=== PATIENT | female | born 1995 | race Caucasian/White ===

== ENCOUNTER 2020-09-06 12:50 | Outpatient (CLI) | payer OTHER, SELFPAY ==
[2020-09-06 13:10] VITALS: BP 123/80; PULSE 77
[2020-09-06 13:16] VITALS: BP 123/80; PULSE 79
[2020-09-06 13:30] VITALS: BP 130/83; PULSE 87
--- NOTE | 2020-09-06 13:37 | PC.NURSE ---
No need to send labs per BP Alee's WNL.
--- NOTE | 2020-09-06 13:37 | PC.NURSE ---
Dr Coleman notified of c/o of elevated BP, headache and some vaginal spotting. Informed of BP's today and sve from yesterday. Ok to dc home with labor precautions.
== END 2020-09-06 13:45 | disposition home or self-care (01) ==
LOC: ANHOBOP 12:53 → ANHOBPP 12:54
PROVIDERS: PCP Family Medicine; Visit Provider Obstetrics & Gynecology
DX: O13.9 Gestational [pregnancy-induced] hypertension without significant proteinuria, unspecified trimester (principal); Z3A.00 Weeks of gestation of pregnancy not specified
CPT/HCPCS: 59025; 99199

== ENCOUNTER 2020-09-10 20:34 | Observation (INO) | payer OTHER, SELFPAY ==
[2020-09-10 22:00] VITALS: BMI 42.0
--- NOTE | 2020-09-11 06:55 | OBADM ---
This patient, Aviva Luke, admitted to the OB room Labor/Delivery/Recovery 105 for observation. Patient/family oriented to hospital policies and general routines including ID bracelet, bed and alarms, visiting hours, pain management, procedures, bathroom and other care routines, personal items, smoking policy, room service/diet, and visiting hours. Patient/Family are encouraged to report perceived risks to care and to ask questions if they do not understand what they are told or what they should do.
--- NOTE | 2020-10-08 10:54 | PM.OBTRLD ---
OB - Triage/Final Diagnosis Visit Information Comments/Additional reasons for admission: I have assessed the risk for this patient, Aviva Luke, and determined that she would benefit from observation care. Final Diagnosis (1) False labor: Code(s): O47.9 - False labor, unspecified Status: Acute
== END 2020-09-11 07:35 | disposition home or self-care (01) ==
PROVIDERS: Admitting Provider Obstetrics & Gynecology; PCP Family Medicine; Visit Provider Obstetrics & Gynecology
DX: O47.03 False labor before 37 completed weeks of gestation, third trimester (principal); Z3A.38 38 weeks gestation of pregnancy
CPT/HCPCS: G0378; G0379

== ENCOUNTER 2020-09-15 05:55 | Inpatient (IN) | payer OTHER, SELFPAY ==
[2020-09-15] VITALS (70 sets, daily range): BP systolic 74–150; BP diastolic 43–108; PULSE 55–137; RESP 18; TEMP 36.2–36.6; O2SAT 82–100; BMI 41.6
--- OUTSIDE RECORDS SUMMARY | 2020-09-15 06:03 | XMS_ITS | Encounter Summary ---
:1995 Author Reason for Visit OB visit Assessment and Plan 1. Previous bariatric surgery co mplicating 2. Routine care Discussion Note: None recorded.Patient educational handouts: No information available. Plan of Care Reminders Provider Appointments None ? ? recorded. Lab None ? ? recorded. Referral None ? ? recorded. Procedures None ? ? recorded. Surgeries None ? ? recorded. Imaging None ? ? recorded. Medications Name Start Date ? ? ? sertraline 100 mg tablet ? TAKE 1 TABLET BY MOUTH EVERY DAY sertraline 50 mg tablet ? TAKE 1 TABLET BY MOUTH EVERY DAY Unisom (diphenhydramine) ? valacyclovir 500 mg tablet ? TAKE 1 TABLET BY MOUTH TWICE DAILY Vitamin B6 ? Medications Administered None recorded. Vitals Height Weight BMI Blood Pressure 5 ft 7 in 258 lbs 40.4 kg/m2 114/78 mm[Hg] Results Lab Results None recorded. Allergies Code Code System Name Reaction Severity Onset NKDA ? ? ? Problems Name Status Onset Date Source ?
--- OUTSIDE RECORDS SUMMARY | 2020-09-15 06:03 | XMS_ITS | Encounter Summary ---
:1995 Author Reason for Visit OB visit Assessment and Plan 1. Previous bariatric surgery co mplicating Discussion Note: None recorded.Patient educational handouts: No [...] BMI Blood Pressure 5 ft 7 in 254 lbs 39.8 kg/m2 123/80 mm[Hg] Results Lab Results None recorded. Allergies Code Code System Name Reaction Severity Onset NKDA ? ? ? Problems Name Status Onset Date Source ? Previous Bariatric Surgery Complica
--- OUTSIDE RECORDS SUMMARY | 2020-09-15 06:03 | XMS_ITS | Encounter Summary ---
:1995 Author Reason for Visit None recorded. Assessment and Plan 1. Previous bariatric surgery co mplicating ? US, obstetric, follow-up Discussion Note: None recorded.Patient educational handouts: No information available. Plan of Care Reminders Provider Appointments None ? ? recorded. Lab None ? ? recorded. Referral None ? ? recorded. Procedures None ? ? recorded. Surgeries None ? ? recorded. Imaging US, 07/25/2020 [facility], Follow-up Medications Name Start Date ? ? ? sertraline 100 mg tablet ? TAKE 1 TABLET BY MOUTH EVERY DAY sertraline 50 mg tablet ? TAKE 1 TABLET BY MOUTH EVERY DAY Unisom (diphenhydramine) ? valacyclovir 500 mg tablet ? TAKE 1 TABLET BY MOUTH TWICE DAILY Vitamin B6 ? Medications Administered None recorded. Vitals None recorded. Results Lab Results None recorded. Allergies Code Code System Name Reaction Severity Onset NKDA ? ? ? Problems Name Status Onset Date Source ? Previous Bariatric Surgery Complic
--- OUTSIDE RECORDS SUMMARY | 2020-09-15 06:03 | XMS_ITS | Encounter Summary ---
:1995 Author Reason for Visit OB visit OB [id number] EDC 09/22/2020 LMP November 2019 un sure Assessment and Plan Assessment Note Patient is __31_weeks . Dis cussed plan. 1. Routine care Discussion Note: None recorded.Patient educational [...] BMI Blood Pressure 5 ft 7 in 256 lbs 40.1 kg/m2 116/84 mm[Hg] Results Lab Results None recorded. Allergies Code Code System Name Reaction Severity Onset NKDA ? ? ?
--- OUTSIDE RECORDS SUMMARY | 2020-09-15 06:03 | XMS_ITS | Encounter Summary ---
[...] Surgeries None ? ? recorded. Imaging US, 08/28/2020 [facility], Follow-up Medications Name Start Date ? [...] Onset Date Source ? Previous Bariatric Surgery Compli
--- OUTSIDE RECORDS SUMMARY | 2020-09-15 06:03 | XMS_ITS | Encounter Summary ---
:1995 Author Reason for Visit None recorded. Assessment and Plan 1. screening ? US, obstetric, follow-up Discussion Note: None recorded.Patient educational handouts: No information available. Plan of Care Reminders Provider Appointments None ? ? recorded. Lab None ? ? recorded. Referral None ? ? recorded. Procedures None ? ? recorded. Surgeries None ? ? recorded. Imaging US, 06/26/2020 [facility], Follow-up Medications Name Start Date ? [...] Onset Date Source ? Previous Bariatric Surgery Complicating Active 07/16/20
--- OUTSIDE RECORDS SUMMARY | 2020-09-15 06:03 | XMS_ITS | Encounter Summary ---
:1995 Author Reason for Visit OB visit Assessment and Plan Assessment Note Patient is ___weeks . Discu ssed plan. 1. Routine care Discussion Note: None [...] BMI Blood Pressure 5 ft 7 in 261 lbs 40.9 kg/m2 144/85 mm[Hg] Results Lab Results None recorded. Allergies Code Code System Name Reaction Severity Onset NKDA ? ? ? Problems Name Status Onset Date [facility]
--- OUTSIDE RECORDS SUMMARY | 2020-09-15 06:03 | XMS_ITS | Encounter Summary ---
:1995 Author Reason for Visit OB visit OB [id number] EDC 09/22/2020 LMP November 2019 un sure Assessment and Plan Assessment Note Patient is __38 weeks . Dis cussed plan. Additional precautionary measures were taken to minimize potentia l exposure to the Covid-19 virus during this patient?s visit, including available araya d bench machine operator upon arrive, temperature check and being asked a series of screening qu estions. All staff wore face coverings during this encounter, as well as provided gabriel tional cleaning and sanitizing of all surfaces, including countertops, pens, c hairs, door handles, light switches, etc, prior to and following the patient?s vis it. 1. Routine care Discussion Note: None recorded.Patient [...]
--- OUTSIDE RECORDS SUMMARY | 2020-09-15 06:03 | XMS_ITS | Encounter Summary ---
[...] ft 7 in 254 lbs 39.8 kg/m2 138/80 mm[Hg] Results Lab Results None recorded. Allergies Code Code System Name Reaction Severity Onset NKDA ? ? ? Problems Name Status Onset Date Source ?
--- OUTSIDE RECORDS SUMMARY | 2020-09-15 06:03 | XMS_ITS | Encounter Summary ---
[...] BMI Blood Pressure 5 ft 7 in 262 lbs 41 kg/m2 118/79 mm[Hg] Results Lab Results None recorded. Allergies Code Code System Name Reaction Severity Onset NKDA ? ? ? Problems Name Status Onset Date [facility]
--- OUTSIDE RECORDS SUMMARY | 2020-09-15 06:03 | XMS_ITS ---
:1995 Author Care Team Providers Name Role Phone Rylan Coleman Primary Care Provider Unavailable Allergies Code Code System Name Reaction Severity Status Onset NKDA ? Medications Name Status Start Date Stop Date ? ? Boostrix Tdap 2.5 Lf unit-8 mcg-5 Lf/0.5 mL intramuscular syring e Completed ? 09/12/2020 PHARMACY ADMINISTERED Macrobid 100 mg capsule Completed 07/26/2018 08/19/19 19 take 1 capsule by oral route every 12 hours with food Microgestin FE 20 (28) 1 Completed ? 06/26 mg-20 mcg (21)/75 mg (7) tablet Nortrel 1/35 (21) 1 mg-35 mcg tablet Completed 02/14/2019 07/16/2020 take 1 tablet by oral route every day ondansetron HCl 4 mg tablet Completed 07/22/201801/18 take 1 tablet by oral route every 6 hours ondansetron HCl 8 mg tablet Completed ? 02/2020 TK 1 T PO Q 8 H FOR 2 DAYS Phenergan 12.5 mg rectal suppository Completed 06/17/2018 02/14/2019 insert 2 suppository by rectal route 2 times every day Active ? Not available 28 mg iron-800 mcg Completed ? 01/18 tablet promethazine 12.5 mg tablet Completed 06/28/201801/18 take 1 tablet by oral route 4 times essence ry day before meals and at bedtime as needed for nausea sertraline 100 mg tablet Active ? Not andre ilable TAKE 1 TABLET BY MOUTH EVERY DAY sertraline 50 mg tablet Active ? Not avai lable TAKE 1 TABLET BY MOUTH EVERY DAY
--- NOTE | 2020-09-15 06:44 | WPDANESEPP ---
Anes - Eval Pre Procedure Procedure: labor epidural Date/Time: 09/15/20 06:44 Surgeon: albert Preop Diagnosis: pain during labor Pre Op Diagnosis: Induction of Labor Patient Data Age: 24 Gender: F Height: Weight: Allergies Allergy/AdvReac Type Severity Reaction Status Date / Time No Known Allergies Allergy Verified 08/28/20 13:33 Home Medications Medication Instructions Recorded Confirmed Type prenat.vits,fiona,sic-qikw-jxugr 1 tablet PO DAILY 08/28/20 08/28/20 History sertraline [Zoloft] 50 mg PO DAILY 08/28/20 08/28/20 History sertraline [Zoloft] 100 mg PO DAILY 08/28/20 08/28/20 History Patient hx anesthesia problems: none Family hx anesthesia problems: none PMFSH Past Medical History Medical History (Updated 09/15/20 @ 06:45 by Adilene Selby CRNA) Depression Intrauterine Family History Family History (Updated 08/28/20 @ 13:36 by Chapincito Lujan RN) Father Diabetes mellitus Hypertension Mother Diabetes mellitus Hypertension Atrial fibrillation Social History Social History Substance use: never Spiritual care concerns: No Exam Day of Procedure 09/15/20 06:44
[2020-09-15] MEDS: OXYTOCIN 30 UNITS/NS 500 ML 30 UNITS/500 ML BAG IV CONT (07:05)
[2020-09-15 07:06] LABS: Basophils Percent Auto 0.2 % (0.2-1.2); Eosinophils Percent Auto 0.2 % (0-4.4); Hematocrit 37.2 % (37.0-47.0); Hemoglobin 12.8 g/dL (12.0-15.0); Immature Granulocyte Absolute 0.12 K/mm3 (0.00-0.031); Immature Granulocyte Percent A 1.1 % (0-0.5); Lymphocytes Absolute Auto 2.63 K/mm3 (0.9-3.2); Lymphocytes Percent Auto 23.7 % (18.3-44.2); Mean Corpuscular HGB Conc 34.4 g/dl (32-36); Mean Corpuscular Hemoglobin 30.3 pg (26-34); Mean Corpuscular Volume 88.2 fl (80-100); Mean Platelet Volume 11.5 fl (7.4-10.4); Monocytes Absolute Auto 0.6 K/mm3 (0.1-0.6); Monocytes Percent Auto 5.6 % (2.6-8.5); Neutrophils Absolute Auto 7.7 K/mm3 (1.3-6.7); Neutrophils Percent Auto 69.2 % (45.5-73.1); Platelet Count Result 220 k/mm3 (150-375); Red Blood Count 4.22 M/mm3 (4.2-5.4); Red Cell Distribution Width 12.3 % (11.5-14.5); White Blood Count 11.1 K/mm3 (4.5-10.0)
[2020-09-15] MEDS: LACTATED RINGERS 1,000 ML 125 ML IV CONT ×3 (07:06→12:21)
--- NOTE | 2020-09-15 07:11 | LDADM ---
This patient, Aviva Luke, was admitted to Labor/Delivery/Recovery 104 on 09/15/20 at 05:55. Plans for labor, pain management and were discussed with patient. Patient/family oriented to hospital policies and general routines including ID bracelet, bed and alarms, visiting hours, pain management, procedures, bathroom and other care routines, personal items, smoking policy, room service/diet and guest tray routines, security routines, and visiting hours. Patient/Family are encouraged to report perceived risks to care and to ask questions if they do not understand what they are told or what they should do. See OBIX for further documentation.
--- NOTE | 2020-09-15 09:27 | WPDHPUPDATE1 ---
History and Physical Update Update Date/Time: 09/15/20 09:27 Multip at 39 weeks - AROM clear /-3, reassuring FHT's History and Physical has been reviewed, including an updated exam of the patient. There are NO changes in the patient's condition. Risks, benefits, and alternatives have been discussed and questions answered. Patient agrees to proceed with procedure.
[2020-09-15] MEDS: ONDANSETRON INJ 4 MG/2 ML VIAL IV PUSH (10:50)
--- NOTE | 2020-09-15 12:49 | PM.OBPRVD ---
OB - Delivery Note Procedure Delivery date: 09/15/20 Procedure: Intrapartal events: None Induction method: AROM and per pitocin protocol Delivery monitor: external FHT and external uterine Route of delivery: Episiotomy description: None Laceration Description: Vaginal - 1st Degree Delivery repair: vicryl Specimen: No Quantitative Blood Loss (ml): 100 Anesthesia type: Epidural Disposition: floor Baby Date of : 09/15/20 Time of : 12:39 Weeks of gestation at delivery: 39 gender: Male presentation: vertex position: Left Occiput Anterior Placenta delivery description: Spontaneous cord vessel description: 3 Vessels score one minute: 8 score five minutes: 9
[2020-09-15] MEDS: OXYTOCIN 30 UNITS/NS 500 ML 30 UNITS/500 ML BAG 125 UNITS IV CONT (13:12)
[2020-09-15] MEDS: WITCH HAZEL 40 PADS 1 PAD TOPICAL (15:13)
[2020-09-15] MEDS: BENZOCAINE 20% AER SPR (*SP) 56 GM CAN 1 SPRAY TOPICAL (15:13)
[2020-09-15] MEDS: ACETAMINOPHEN 325 MG TABLET 650 MG PO (17:45)
[2020-09-15] MEDS: SERTRALINE HCL 50 MG TABLET 100 MG PO (22:30)
[2020-09-15] MEDS: SERTRALINE HCL 50 MG TABLET PO (22:31)
[2020-09-16 01:19] VITALS: BP 118/68; PULSE 61; RESP 18; TEMP 36.3; O2SAT 100
[2020-09-16] MEDS: ACETAMINOPHEN 325 MG TABLET 650 MG PO ×4 (01:19→20:40)
[2020-09-16 05:15] VITALS: BP 123/77; PULSE 56; RESP 18; TEMP 36.4
[2020-09-16 05:28] LABS: Hematocrit 34.7 % (37.0-47.0); Hemoglobin 11.7 g/dL (12.0-15.0)
--- NOTE | 2020-09-16 07:54 | WPDANLDPN2 ---
Anes-Prog Note L&D Date/Time: 09/16/20 07:54 Comfortable throughout: labor and delivery Neuraxial method: epidural Epidural/Spinal procedure site: clean & non-tender Neuro status: Neuro function grossly intact. Cardiovascular status: normal Respiratory status: normal Airway patency: baseline Mental status: baseline Post-Op hydration status: normal Vital Signs: Last Vital Signs Temp 36.4 C L 09/16/20 05:15 Pulse 56 L 09/16/20 05:15 Resp 18 09/16/20 05:15 BP 123/77 09/16/20 05:15 Pulse Ox 100 09/16/20 01:19 Pain score (VAS): 0/10 I/O: Intake & Output 09/15/20 09/15/20 09/16/20 15:59 23:59 07:59 Intake Total 2000 400 Output Total 137 Balance 1863 400 Post-procedural complaints: none Patient feedback: Patient satisfied with anesthetic care.
[2020-09-16] MEDS: DOCUSATE SODIUM 100 MG CAPSULE PO (07:57)
[2020-09-16 12:27] VITALS: BP 124/66; PULSE 82; RESP 18; TEMP 36.6; O2SAT 99
--- NOTE | 2020-09-16 12:57 | PM.OBPNVD ---
OB - PN: Subj Subjective Date/time seen: 09/16/20 12:57 Patient comments: no complaints, pain well controlled, incisional pain, tolerating diet and flatus present OB - PN: Obj Data Labs CBC & Chem 7: 09/16/20 05:19 Labs: Laboratory Results - last 24 hr 09/16/20 05:19 Hgb 11.7 L Hct 34.7 L OB - PN A/P Plan day: 1 Plan: routine care Comments: No problems, routine care Time Spent With Patient Time: Total time spent is greater than 50% in coordination of care (as documented) at patient's floor/unit and/or counseling patient: Exam Const: General: comfortable, no acute distress and alert Resp: Effort & Inspection: normal respiratory effort Auscultation: no crackles, no rales and no rhonchi Cardio: Rate: regular rate Heart sounds: no click, no murmurs and no rubs GI: Inspection: non-distended GI Palp: No Tenderness to palpation present (GI) Auscultation: normal bowel sounds Other: Incision - CDI Extrem: General: normal to inspection, no pedal edema and no calf tenderness
[2020-09-16 19:45] VITALS: BP 134/81; PULSE 64; RESP 18; TEMP 36.7; O2SAT 99
[2020-09-16] MEDS: SERTRALINE HCL 50 MG TABLET 100 MG PO (20:38)
[2020-09-16] MEDS: SERTRALINE HCL 50 MG TABLET PO (20:38)
[2020-09-17 07:15] VITALS: BP 138/78; PULSE 78; RESP 20; TEMP 36.2; O2SAT 99
--- NOTE | 2020-09-17 08:57 | PM.OBPNVD ---
OB - PN: Subj Subjective Date/time seen: 09/17/20 08:57 Patient comments: no complaints, pain well controlled and tolerating diet OB - PN: Obj Data Labs CBC & Chem 7: 09/16/20 05:19 OB - PN A/P Plan day: 2 Plan: routine care and discharge home Time Spent With Patient Time: Total time spent is greater than 50% in coordination of care (as documented) at patient's floor/unit and/or counseling patient: Exam Const: General: comfortable and no acute distress Resp: Effort & Inspection: normal respiratory effort Auscultation: no rales, no rhonchi and no wheezes Cardio: Rate: regular rate Heart sounds: no click, no murmurs and no rubs GI: GI Palp: Yes Soft to palpation and No Tenderness to palpation present (GI) Auscultation: normal bowel sounds Extrem: General: normal to inspection, no pedal edema and no calf tenderness
--- NOTE | 2020-09-17 08:58 | P.DS_ITS ---
DS: Admitting Diagnosis Admitting Diagnosis Admitting Diagnosis: term OB - DS: Summary OB Procedures : None OB Procedures Intrapartum: Spontaneous Vag Delivery OB Procedures: : None Peripartum Data Infant Delivery Method: Natural Vaginal Laceration Description: Vaginal - 1st Degree complications: none Time Spent with Patient Time attestation: Total time spent providing and/or coordinating discharge servi carey: Discharge Plan Discharge Discharging Clinician: Star Coleman Patient Disposition: Home, Self-Care Activity: pelvic rest Diet: regular Patient Instructions: Antibiotic Form Stand Alone Forms: General Discharge Information Follow-up/Referrals: Star Coleman MD [Physician] - Discharge Medications: Continued sertraline [Zoloft] 100 mg Tablet 100 mg PO DAILY RF: 0 sertraline [Zoloft] 50 mg Tablet 50 mg PO DAILY RF: 0 prenat.vits,fiona,bxz-plep-dleds Tablet 1 tablet PO DAILY RF: 0 Date of admission: 09/15/20 05:55 Primary Care Provider: BOGDAN,TEVIN Admitting Provider: Star Coleman Attending physician on admission: Star Coleman Condition: Stable
[2020-09-17 09:54] LABS: Rapid Plasma Reagin Non-Reactive (NonReactive)
[2020-09-20 11:07] VITALS: BP 123/77; PULSE 66; RESP 20; TEMP 36.9; O2SAT 100
== END 2020-09-17 12:55 | disposition home or self-care (01) | DRG 807 ==
LOC: ANHLDR 06:00 → ANHOB2 15:55
PROVIDERS: Advanced Practice Midwife; Admitting Provider Obstetrics & Gynecology; PCP Family Medicine; Visit Provider Obstetrics & Gynecology
DX: O76 Abnormality in fetal heart rate and rhythm complicating labor and delivery (principal); Z37.0 Single live birth; O70.0 First degree perineal laceration during delivery; Z3A.39 39 weeks gestation of pregnancy
CPT/HCPCS: 36415; 85014; 85018; 85025; 86592; 86850; 86900; 86901; A9270; J2405; J2590; J2795; J7120